=== PATIENT | female | born 1970 | race Caucasian/White ===

== ENCOUNTER 2016-11-21 16:54 | Emergency (ER) | payer OTHER ==
[~2016-11-21] VITALS: Ht 154.9 cm; Wt 74.1 kg
[2016-11-21 16:55] VITALS: BP 192/94; PULSE 119; RESP 16; TEMP 98.7; O2SAT 98
[2016-11-21] MEDS ORDERED: SODIUM CHLOR 0.9% 1000 ML INJ 1,000 ML IV ONE (17:45)
[2016-11-21] MEDS ORDERED: SODIUM CHLORIDE 0.9% FLUSH 10 ML FLUSH IVF PRN (17:45)
--- NOTE | 2016-11-21 17:55 | PD ---
HPI Chief Complaint: Cardiac Complaint Time Seen by Provider: 17:40 Travel History International Travel<30 days: No Contact w/Intl Traveler<30days: No Traveled to known affect area: No History of Present Illness HPI Patient is a 46-year-old female who presents to emergency room complaints of palpitations. Patient reports that she felt her heart racing today while at work and checked her pulse and noted it to be high. 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 Patient reports that she does not have history of hypertension or palpitations in the past. Patient denies any headache or dizziness, patient denies any chest pain or shortness of breath. Patient reports no recent travels, denies history of PE or DVT. Patient reports that she currently does not take any control pills, denies use of drugs/alcohol. PFSH Past Medical History Asthma: Yes Past Surgical History Surgical History: No Previous Surgery Family History Family History: Negative Social History Alcohol Use: No Tobacco Use: No Substance Use: No Allergies-Medications (Allergen,Severity, Reaction): Coded Allergies: azithromycin (Verified Adverse Reaction, Severe, HEADACHE, HEART PALPITATIONS, 11/21/16) Reported Meds & Prescriptions Reported Meds & Active Scripts Active Reported Ambien (Zolpidem Tartrate) 10 Mg Tab 10 Mg PO HS PRN Nasal Allergy 24 Hour (Triamcinolone Nasal) 55 Mcg Spr 2 Luke EACH NARE DAILY Omeprazole 20 Mg Tab 20 Mg PO DAILY Singulair (Montelukast Sodium) 10 Mg Tab 10 Mg PO HS Advair Hfa 12 GM Inh (Fluticasone-Salmeterol 12 GM Inh) 115-21 Mcg/Act Aer 2 Puff INH BID Ventolin Hfa 18 GM Inh (Albuterol Sulfate) 90 Mcg/Act Aer 2 Puff INH Q6H PRN Review of Systems General / Constitutional: No: Fever Eyes: No: Visual changes HENT: No: Headaches Cardiovascular: Positive: Palpitations, Tachycardia, No: Chest Pain or Discomfort, Syncope, Dyspnea on exertion, Varicosities Respiratory: No: Shortness of Breath Gastrointestinal: No: Abdominal Pain Genitourinary: No: Dysuria Musculoskeletal: No: Pain Skin: No Rash Neurologic: No: Weakness Psychiatric: No: Depression Endocrine: No: Polydipsia Hematologic/Lymphatic: No: Easy Bruising Physical Exam Narrative GENERAL: No acute distress, nontoxic SKIN: Focused skin assessment warm/dry. HEAD: Atraumatic. Normocephalic. EYES: Pupils equal and round. No scleral icterus. No injection or drainage. ENT: No nasal bleeding or discharge. Mucous membranes pink and moist. NECK: Trachea midline. No JVD. CARDIOVASCULAR: Tachycardic. No murmur appreciated. RESPIRATORY: No accessory muscle use. Clear to auscultation. Breath sounds equal bilaterally. GASTROINTESTINAL: Abdomen soft, non-tender, nondistended. Hepatic and splenic margins not palpable. MUSCULOSKELETAL: No obvious deformities. No clubbing. No cyanosis. No edema. NEUROLOGICAL: Awake and alert. No obvious cranial nerve deficits. Motor grossly within normal limits. Normal speech. PSYCHIATRIC: Appropriate mood and affect; insight and judgment normal. Data Data Last Documented VS Vital Signs Date Time Temp Pulse Resp B/P (MAP) Pulse Ox O2 Delivery O2 Flow Rate FiO2 11/21/16 18:19 114 18 98 Room Air 11/21/16 16:55 98.7 192/94 (126) Orders Orders Electrocardiogram (11/21/16 ) Complete Blood Count With Diff (11/21/16 17:45) Comprehensive Metabolic Panel (11/21/16 17:45) D-Dimer (11/21/16 17:45) Magnesium (Mg) (11/21/16 17:45) Prothrombin Time / Inr (Pt) (11/21/16 17:45) Act Partial Throm Time (Ptt) (11/21/16 17:45) Lipase (11/21/16 17:45) Chest, Single Ap (11/21/16 17:45) Ecg Monitoring (11/21/16 17:45) Iv Access Insert/Monitor (11/21/16 17:45) Oximetry (11/21/16 17:45) Sodium Chloride 0.9% Flush (Ns Flush) (11/21/16 17:45) Thyroid Stimulating Hormone (11/21/16:45) Sodium Chlor 0.9% 1000 Ml Inj (Ns 1000 M (11/21/16 17:45) Ct Pulmonary Angiogram (11/21/16 18:45) Labs Laboratory Tests Test 11/21/16 18:05 White Blood Count 6.8 TH/MM3 Red Blood Count 4.48 MIL/MM3 Hemoglobin 13.9 GM/DL Hematocrit 41.3 % Mean Corpuscular Volume 92.2 FL Mean Corpuscular Hemoglobin 31.0 PG Mean Corpuscular Hemoglobin Concent 33.7 % Red Cell Distribution Width 12.7 % Platelet Count 270 TH/MM3 Mean Platelet Volume 8.6 FL Neutrophils (%) (Auto) 71.3 % Lymphocytes (%) (Auto) 15.3 % Monocytes (%) (Auto) 9.3 % Eosinophils (%) (Auto) 1.3 % Basophils (%) (Auto) 2.8 % Neutrophils # (Auto) 4.9 TH/MM3 Lymphocytes # (Auto) 1.0 TH/MM3 Monocytes # (Auto) 0.6 TH/MM3 Eosinophils # (Auto) 0.1 TH/MM3 Basophils # (Auto) 0.2 TH/MM3 CBC Comment DIFF FINAL Differential Comment Prothrombin Time 9.9 SEC Prothromb Time International Ratio 0.9 RATIO Activated Partial Thromboplast Time 26.6 SEC D-Dimer Quantitative (PE/DVT) 0.75 MG/L FEU Blood Urea Nitrogen 8 MG/DL Creatinine 0.89 MG/DL Random Glucose 99 MG/DL Total Protein 8.7 GM/DL Albumin 4.1 GM/DL Calcium Level 9.5 MG/DL Magnesium Level 1.9 MG/DL Alkaline Phosphatase 43 U/L Aspartate Amino Transf (AST/SGOT) 38 U/L Alanine Aminotransferase (ALT/SGPT) 74 U/L Total Bilirubin 0.4 MG/DL Sodium Level 137 MEQ/L Potassium Level 3.9 MEQ/L Chloride Level 102 MEQ/L Carbon Dioxide Level 26.2 MEQ/L Anion Gap 9 MEQ/L Estimat Glomerular Filtration Rate 68 ML/MIN Lipase 135 U/L Thyroid Stimulating Hormone 3rd Gen 2.370 uIU/ML [facility] Medical Decision Making Medical Screen Exam Complete: Yes Emergency Medical Condition: Yes Medical Record Reviewed: Yes Interpretation(s) EKG at 1748: Sinus tach at 102bpm, qt/qtc: 348/407 Vital Signs Date Time Temp Pulse Resp B/P (MAP) Pulse Ox O2 Delivery O2 Flow Rate FiO2 11/21/16 16:55 98.7 119 16 192/94 (126) 98 Differential Diagnosis Differential includes PE, hyperthyroidism, arrhythmia, electrolyte abnormality Narrative Course Patient is a 46 old female presents to emergency room with complaints of palpitations and hypertension. Patient with no history of hypertension or palpitations the past. Patient with absolutely no chest pain or shortness of breath. Patient is present shelter monitor upon arrival to the emergency room. An EKG was obtained which showed sinus tachycardia with nonspecific changes. Lab work including TSH and d-dimer was ordered. Plan to monitor patient and administer IV fluids. Laboratory Tests Test 11/21/16 18:05 White Blood Count 6.8 TH/MM3 (4.0-11.0) Red Blood Count 4.48 MIL/MM3 (4.00-5.30) Hemoglobin 13.9 GM/DL (11.6-15.3) Hematocrit 41.3 % (35.0-46.0) Mean Corpuscular Volume 92.2 FL (80.0-100.0) Mean Corpuscular Hemoglobin 31.0 PG (27.0-34.0) Mean Corpuscular Hemoglobin Concent 33.7 % (32.0-36.0) Red Cell Distribution Width 12.7 % (11.6-17.2) Platelet Count 270 TH/MM3 (150-450) Mean Platelet Volume 8.6 FL (7.0-11.0) Neutrophils (%) (Auto) 71.3 % (16.0-70.0) Lymphocytes (%) (Auto) 15.3 % (9.0-44.0) Monocytes (%) (Auto) 9.3 % (0.0-8.0) Eosinophils (%) (Auto) 1.3 % (0.0-4.0) Basophils (%) (Auto) 2.8 % (0.0-2.0) Neutrophils # (Auto) 4.9 TH/MM3 (1.8-7.7) Lymphocytes # (Auto) 1.0 TH/MM3 (1.0-4.8) Monocytes # (Auto) 0.6 TH/MM3 (0-0.9) Eosinophils # (Auto) 0.1 TH/MM3 (0-0.4) Basophils # (Auto) 0.2 TH/MM3 (0-0.2) CBC Comment DIFF FINAL Differential Comment Prothrombin Time 9.9 SEC (9.8-11.6) Prothromb Time International Ratio 0.9 RATIO Activated Partial Thromboplast Time 26.6 SEC (24.3-30.1) D-Dimer Quantitative (PE/DVT) 0.75 MG/L FEU (0.00-0.50) Blood Urea Nitrogen 8 MG/DL (7-18) Creatinine 0.89 MG/DL (0.50-1.00) Random Glucose 99 MG/DL (74-106) Total Protein 8.7 GM/DL (6.4-8.2) Albumin 4.1 GM/DL (3.4-5.0) Calcium Level 9.5 MG/DL (8.5-10.1) Magnesium Level 1.9 MG/DL (1.5-2.5) Alkaline Phosphatase 43 U/L (45-117) Aspartate Amino Transf (AST/SGOT) 38 U/L (15-37) Alanine Aminotransferase (ALT/SGPT) 74 U/L (10-53) Total Bilirubin 0.4 MG/DL (0.2-1.0) Sodium Level 137 MEQ/L (136-145) Potassium Level 3.9 MEQ/L (3.5-5.1) Chloride Level 102 MEQ/L (98-107) Carbon Dioxide Level 26.2 MEQ/L (21.0-32.0) Anion Gap 9 MEQ/L (5-15) Estimat Glomerular Filtration Rate 68 ML/MIN (>89) Lipase 135 U/L (73-393) Thyroid Stimulating Hormone 3rd Gen 2.370 uIU/ML (0.358-3.740) Patient with positive d-dimer, CTA ordered to rule out PE. Patient signed out to care of Dr. Casas at change of shift. Krystina Molina DO Nov 21, 2016 17:55
[2016-11-21] MEDS ORDERED: VENTAER INH (18:06)
[2016-11-21] MEDS ORDERED: MONT10TA2 PO (18:06)
[2016-11-21] MEDS ORDERED: ADVA115A INH (18:06)
[2016-11-21] MEDS ORDERED: OMEP20TA PO (18:06)
[2016-11-21] MEDS ORDERED: AMBI10TA PO (18:07)
[2016-11-21] MEDS ORDERED: TRIA1SPR7 EACH NARE (18:07)
[2016-11-21 18:10] LABS: AUTOMATED NEUTROPHIL # 4.9 TH/MM3 (1.8-7.7); BASOPHIL # 0.2 TH/MM3 (0-0.2); BASOPHIL % 2.8 % (0.0-2.0); EOSINOPHIL # 0.1 TH/MM3 (0-0.4); EOSINOPHIL % 1.3 % (0.0-4.0); HEMATOCRIT 41.3 % (35.0-46.0); HEMO FLAGS DIFF FINAL; LYMPH % 15.3 % (9.0-44.0); MEAN CELL VOLUME 92.2 FL (80.0-100.0); MEAN CORPUSCULAR HGB CONC 33.7 % (32.0-36.0); MONO % 9.3 % (0.0-8.0); NEUT % 71.3 % (16.0-70.0); PLATELET COUNT 270 TH/MM3 (150-450); RED BLOOD COUNT 4.48 MIL/MM3 (4.00-5.30); RED CELL DISTRIBUTION WIDTH 12.7 % (11.6-17.2); WHITE BLOOD COUNT 6.8 TH/MM3 (4.0-11.0)
[2016-11-21 18:14] VITALS: O2SAT 98
[2016-11-21 18:23] LABS: CHLORIDE 102 MEQ/L (98-107); SODIUM (NA) 137 MEQ/L (136-145)
[2016-11-21 18:27] LABS: ANION GAP 9 MEQ/L (5-15); BICARBONATE 26.2 MEQ/L (21.0-32.0); BLOOD UREA NITROGEN 8 MG/DL (7-18); MAGNESIUM 1.9 MG/DL (1.5-2.5)
[2016-11-21 18:29] LABS: ALT (GPT) 74 U/L (10-53); APTT (PATIENT) 26.6 SEC (24.3-30.1); AST (GOT) 38 U/L (15-37); INTERNATIONAL NORMALIZED RATIO 0.9 RATIO; PROTHROMBIN TIME - PATIENT 9.9 SEC (9.8-11.6)
[2016-11-21 18:30] LABS: GLOMERULAR FILTRATION RATE 68 ML/MIN (>89)
[2016-11-21 18:31] LABS: TOTAL BILIRUBIN ADULT 0.4 MG/DL (0.2-1.0)
[2016-11-21 18:32] LABS: ALKALINE PHOSPHATASE 43 U/L (45-117); POTASSIUM 3.9 MEQ/L (3.5-5.1)
[2016-11-21 18:56] VITALS: BP 160/90; PULSE 77; RESP 16; O2SAT 99
--- NOTE | 2016-11-21 19:13 | RADRPT ---
EXAM DATE/TIME: 11/21/2016 18:58 [facility] COMPARISON: No previous studies available for comparison. INDICATIONS : Chest palpitations. High blood pressure. MEDICAL HISTORY : Asthma. SURGICAL HISTORY : None. ENCOUNTER: Initial ACUITY: 1 day PAIN SCORE: 2/10 LOCATION: Bilateral chest FINDINGS: A single view of the chest demonstrates the lungs to be symmetrically aerated without evidence of mas s, infiltrate or effusion. The cardiomediastinal contours are unremarkable. Osseous structures are intact. CONCLUSION: Normal examination for a patient of this age. Jeff Rosales MD on November 21, 2016 at 19:11 Board Certified Radiologist. This report was verified electronically.
[2016-11-21] MEDS ORDERED: IOHEXOL 350 MG/ML 10 ML VIAL (for RAD DIAG) IVCONTRAST ONE (20:10)
--- NOTE | 2016-11-21 20:18 | RADRPT ---
EXAM DATE/TIME: 11/21/2016 19:58 [facility] COMPARISON: No previous studies available for comparison. INDICATIONS : Tachycardia and heart palpitations. IV CONTRAST: 75 cc Omnipaque 350 (iohexol) IV RADIATION DOSE: 12.4 CTDIvol (mGy) MEDICAL HISTORY : None SURGICAL HISTORY : section. ENCOUNTER: Initial ACUITY: 1 day PAIN SCALE: 0/10 LOCATION: chest TECHNIQUE: Volumetric scanning of the chest was performed using a pulmonary embolism protocol MIP images were re constructed. Using automated exposure control and adjustment of the mA and/or kV according to patien t size, radiation dose was kept as low as reasonably achievable to obtain optimal diagnostic quality images. DICOM format image data is available electronically for review and comparison. Follow-up recommendations for detected pulmonary nodules are based at a minimum on nodule size and pa tient risk factors according to Fleischner Society Guidelines. FINDINGS: PULMONARY ARTERIES: No filling defects are seen in the pulmonary arteries through the segmental level. LUNGS: There is no consolidation or pneumothorax . No concerning pulmonary nodule is visualized. PLEURAE: There is no pleural thickening or pleural effusion. MEDIASTINUM: There is good visualization of the great vessels of the middle mediastinum. No evidence of mediastin al or hilar adenopathy/mass. MUSCULOSKELETAL: Within normal limits for patient age. MISCELLANEOUS: The visualized upper abdominal organs demonstrate no acute abnormality. Small hiatal hernia the GE ju nction. Fatty infiltration of the liver. CONCLUSION: 1. No evidence of pulmonary embolism. 2. No acute pulmonary infiltrates. Jeff Rosales MD on November 21, 2016 at 20:14 Board Certified Radiologist. This report was verified electronically.
--- NOTE | 2016-11-21 20:34 | PD ---
Physical Exam Time Seen by Provider: 20:[address] Molina left this patient with me to check the laboratory and make a disposition, likely discharge. Data Data Last Documented VS Vital Signs Date Time Temp Pulse Resp B/P (MAP) Pulse Ox O2 Delivery O2 Flow Rate FiO2 11/21/16 19:21 78 16 99 Room Air 11/21/16 18:56 160/90 (113) 11/21/16 16:55 98.7 Orders Orders Electrocardiogram (11/21/16 ) Complete Blood Count With Diff (11/21/16 17:45) Comprehensive Metabolic Panel (11/21/16 17:45) D-Dimer (11/21/16 17:45) Magnesium (Mg) (11/21/16 17:45) Prothrombin Time / Inr (Pt) (11/21/16:45) Act Partial Throm Time (Ptt) (11/21/16 17:45) Lipase (11/21/16 17:45) Chest, Single Ap (11/21/16 17:45) Ecg Monitoring (11/21/16 17:45) Iv Access Insert/Monitor (11/21/16 17:45) Oximetry (11/21/16 17:45) Sodium Chloride 0.9% Flush (Ns Flush) (11/21/16 17:45) Thyroid Stimulating Hormone (11/21/16 17:45) Sodium Chlor 0.9% 1000 Ml Inj (Ns 1000 M (11/21/16 17:45) Ct Pulmonary Angiogram (11/21/16 18:45) Iohexol 350 Inj (Omnipaque 350 Inj) (11/21/16 20:10) Labs Laboratory Tests Test 11/21/16 18:05 White Blood Count 6.8 TH/MM3 Red Blood Count 4.48 MIL/MM3 Hemoglobin 13.9 GM/DL Hematocrit 41.3 % Mean Corpuscular Volume 92.2 FL Mean Corpuscular Hemoglobin 31.0 PG Mean Corpuscular Hemoglobin Concent 33.7 % Red Cell Distribution Width 12.7 % Platelet Count 270 TH/MM3 Mean Platelet Volume 8.6 FL Neutrophils (%) (Auto) 71.3 % Lymphocytes (%) (Auto) 15.3 % Monocytes (%) (Auto) 9.3 % Eosinophils (%) (Auto) 1.3 % Basophils (%) (Auto) 2.8 % Neutrophils # (Auto) 4.9 TH/MM3 Lymphocytes # (Auto) 1.0 TH/MM3 Monocytes # (Auto) 0.6 TH/MM3 Eosinophils # (Auto) 0.1 TH/MM3 Basophils # (Auto) 0.2 TH/MM3 CBC Comment DIFF FINAL Differential Comment Prothrombin Time 9.9 SEC Prothromb Time International Ratio 0.9 RATIO Activated Partial Thromboplast Time 26.6 SEC D-Dimer Quantitative (PE/DVT) 0.75 MG/L FEU Blood Urea Nitrogen 8 MG/DL Creatinine 0.89 MG/DL Random Glucose 99 MG/DL Total Protein 8.7 GM/DL Albumin 4.1 GM/DL Calcium Level 9.5 MG/DL Magnesium Level 1.9 MG/DL Alkaline Phosphatase 43 U/L Aspartate Amino Transf (AST/SGOT) 38 U/L Alanine Aminotransferase (ALT/SGPT) 74 U/L Total Bilirubin 0.4 MG/DL Sodium Level 137 MEQ/L Potassium Level 3.9 MEQ/L Chloride Level 102 MEQ/L Carbon Dioxide Level 26.2 MEQ/L Anion Gap 9 MEQ/L Estimat Glomerular Filtration Rate 68 ML/MIN Lipase 135 U/L Thyroid Stimulating Hormone 3rd Gen 2.370 uIU/ML [facility] Medical Record Reviewed: Yes Supervised Visit with BONI: No Interpretation(s) The CBC is normal. The complete metabolic profile shows a GFR of 68, AST of 38 , ALT of 74, total protein of 8.7 but is otherwise normal. The lipase is normal and the TSH is normal. The coagulation profile is normal and the d- dimer is slightly elevated at 0.75. The CT angiogram shows no evidence of pulmonary embolus. The chest x-ray is normal. Differential Diagnosis Sinus tachycardia, electrolyte disorder, renal insufficiency, dehydration, acute coronary syndrome-highly unlikely, hypertension poor control, anxiety, infection, urinary tract infection, anxiety, pulmonary embolus Narrative Course It is now 833 and the patient has a heart rate around 90. This is a sinus rhythm. All of the blood work/imaging is normal. Plan: She will follow up with her primary care physician this week or next week. Impression: Tachycardia resolved Diagnosis Primary Impression: Sinus tachycardia Additional Instruction: Follow-up with your primary care physician this week or next week. If you get an episode of severe tachycardia, call the ambulance so they can record the rhythm immediately. Med/Other Pt SpecificInfo: No Change to Meds Disposition: 01 DISCHARGE HOME Condition: Stable Juan Casas MD Nov 21, 2016 20:34
[2016-11-21 21:00] VITALS: BP 148/92
--- NOTE | 2016-11-22 23:49 | EKG ---
Date Performed: 11/21/2016 Time Performed: 17:48:24 PTAGE: 46 years EKG: SINUS TACHYCARDIA WITH SHORT NH INTERVAL MINIMAL ST DEPRESSION ABNORMAL RHYTHM ECG NO PREVIOUS TRACING DOCTOR: Arcenio Anand Interpretating Date/Time 11/22/2016 23:48:43
== END 2016-11-21 21:04 | disposition home or self-care (01) ==
LOC: PHED 16:54
DX: R00.0 Tachycardia, unspecified (principal); J45.909 Unspecified asthma, uncomplicated
CPT/HCPCS: 71010; 71275; 80053; 83690; 83735; 84443; 85025; 85379; 85610; 85730; 93005; 96360; 99285; J7030; Q9967